=== PATIENT | male | born 1975 | race Caucasian/White ===

== ENCOUNTER 2024-01-21 20:19 | Emergency (ER) | payer MEDICAID ==
[~2024-01-21] VITALS: Ht 172.7 cm; Wt 99.1 kg
[2024-01-21 20:21] VITALS: TEMP 98.1
[2024-01-21 21:20] LABS: BASOPHILS # (AUTO) 0.1 X10'3 (0-0.2); BASOPHILS % (AUTO) 0.6 % (0-1); EOSINOPHILS # (AUTO) 0.2 X10'3 (0-0.9); EOSINOPHILS % (AUTO) 1.4 % (0-6); HEMATOCRIT 46.3 % (42.0-52.0); HEMOGLOBIN 15.7 g/dl (14.0-17.9); LYMPHOCYTES # (AUTO) 4.9 X10'3 (1.1-4.8); MEAN CORPUSCULAR HEMOGLOBIN 31.6 PG (27.0-31.0); MEAN PLATELET VOLUME 8.9 FL (7.4-10.4); MONOCYTES # (AUTO) 1.1 X10'3 (0-0.9); MONOCYTES % (AUTO) 9.5 % (2-12); NEUTROPHILS # (AUTO) 5.4 X10'3 (1.8-7.7); NEUTROPHILS % (AUTO) 46.5 % (42-75); PLATELET COUNT 273 X10'3 (140-440); RED BLOOD COUNT 4.98 X10'6 (4.70-6.10); RED CELL DISTRIBUTION WIDTH 12.8 % (11.5-14.5); WHITE BLOOD COUNT 11.6 X10'3 (4.5-11.0)
[2024-01-21] MEDS: carVEDilol 3.125mg tablet PO STA (21:28)
[2024-01-21 21:33] LABS: ALANINE AMINOTRANSFERASE 43 U/L (12-78); ALBUMIN 4.2 G/DL (3.4-5.0); ALBUMIN/GLOBULIN RATIO 0.9 (1.1-1.5); ALKALINE PHOSPHATASE 89 IU/L (46-116); ANION GAP 13 (8-16); ASPARTATE AMINO TRANSFERASE 31 U/L (10-37); BILIRUBIN,TOTAL 0.4 MG/DL (0.1-1.0); BLOOD UREA NITROGEN 15 MG/DL (7-18); BUN/CREATININE RATIO 12.2 (10.0-20.0); CALCIUM 8.8 MG/DL (8.5-10.1); CHLORIDE 103 MMOL/L (99-107); CREATININE 1.23 MG/DL (0.60-1.10); GLUCOSE 116 MG/DL (70-104); POTASSIUM 3.3 MMOL/L (3.5-5.1); SODIUM 142 MMOL/L (135-145); TOTAL CARBON DIOXIDE 25.9 MMOL/L (24-32); TOTAL PROTEIN 8.8 G/DL (6.4-8.2); eCRCL 72 ML/MIN; eGFR 63 ML/MIN
[2024-01-21 21:46] LABS: APTT 23 SECONDS (22-32); INR 1.1 INR
[2024-01-21] MEDS: amLODIPine 5mg tablet PO STA (22:05)
[2024-01-21] MEDS: normal saline 1000ml 1,000 ML IV STA (22:09)
[2024-01-21 22:33] LABS: ETHANOL 66 MG/DL (<10); PRO BRAIN NATRIURETIC PEPTIDE 61 PG/ML (0-125)
[2024-01-21] MEDS: metoprolol tartrate 1mg/ml inj IV STA (23:18)
[2024-01-21 23:29] LABS: URINE AMPHETAMINE SCREEN NEGATIVE (Neg); URINE BARBITUATE SCREEN NEGATIVE (Neg); URINE BENZODIAZEPINES SCREEN NEGATIVE (Neg); URINE CANNABINOID SCREEN NEGATIVE (Neg); URINE COCAINE SCREEN NEGATIVE (Neg); URINE METHADONE SCREEN NEGATIVE (Neg); URINE OPIATE SCREEN NEGATIVE (Neg); URINE PHENCYCLIDINE SCREEN NEGATIVE (Neg)
[2024-01-21] MEDS: lisinopril 10 MG tablet PO ONE (23:29)
[2024-01-21] MEDS ORDERED: cocaine 4% topical solution 4ml bottle MM STA (23:38)
[2024-01-22] MEDS: silver nitrate applicator stick TP STA (00:02)
[2024-01-22] MEDS: LIDOcaine 1% W/epiNEPHrine 1:100,000 20ml vial SQ STA (00:25)
[2024-01-22] MEDS: cocaine 4% topical solution 4ml bottle MM STA (00:32)
[2024-01-22] MEDS: oxymetazoline 15 ML nasal spray NS ONE (01:43)
[2024-01-22] MEDS ORDERED: METO-467 PO (01:57)
[2024-01-22 02:18] VITALS: BP 170/107; PULSE 105; RESP 14; O2SAT 96
[2024-01-22] MEDS: metoprolol tartrate 50mg tablet PO ONE (02:24)
== END 2024-01-22 02:25 | disposition home or self-care (01) ==
LOC: ER 20:19
DX: R04.0 Epistaxis (principal); I10 Essential (primary) hypertension; Z79.899 Other long term (current) drug therapy
CPT/HCPCS: 36415; 71046; 80053; 80305; 80320; 83880; 84484; 85025; 85610; 85730; 93005; 96374; 99285; J3490; J7030